=== PATIENT | male | born 1995 | race Caucasian/White ===

== ENCOUNTER 2020-11-24 09:39 | Emergency (ER) | payer OTHER ==
[~2020-11-24] VITALS: Ht 180.3 cm; Wt 72.6 kg
== END 2020-11-24 10:10 | disposition home or self-care (01) ==
LOC: ED 09:39
DX: S60.221A Contusion of right hand, initial encounter (principal); W22.8XXA Striking against or struck by other objects, initial encounter; Y93.89 Activity, other specified; Y92.69 Other specified industrial and construction area as the place of occurrence of the external cause; Y99.0 Civilian activity done for income or pay

== ENCOUNTER 2022-10-22 14:59 | Emergency (ER) | payer OTHER ==
[~2022-10-22] VITALS: Ht 180.3 cm; Wt 63.5 kg
== END 2022-10-22 17:17 | disposition home or self-care (01) ==
LOC: ED 14:59
DX: S01.81XA Laceration without foreign body of other part of head, initial encounter (principal); W22.8XXA Striking against or struck by other objects, initial encounter; Y93.89 Activity, other specified; Y92.89 Other specified places as the place of occurrence of the external cause; Y99.0 Civilian activity done for income or pay

== ENCOUNTER 2024-08-08 11:00 | Emergency (ER) | payer SELFPAY ==
[~2024-08-08] VITALS: Ht 180.3 cm; Wt 72.6 kg
[2024-08-08] MEDS ORDERED: CIPROFLOXACIN2.5 M1 OPH (11:24)
== END 2024-08-08 11:20 | disposition home or self-care (01) ==
LOC: ED 11:00
DX: H10.9 Unspecified conjunctivitis (principal)